=== PATIENT | male | born 1950 | race Caucasian/White ===

== ENCOUNTER 2020-11-20 11:08 | Observation (INO) | payer MEDICARE, OTHER ==
[~2020-11-20] VITALS: Ht 185.4 cm; Wt 84.2 kg
[2020-11-20] VITALS (22 sets, daily range): BP systolic 99–177; BP diastolic 50–81; PULSE 40–72; TEMP 97.4–98.3
--- NOTE | 2020-11-20 11:10 | NUR ---
Pt admitted to medical unit rm [id number] from [facility] via EMS, awake and alert, oriented x 4. Pt reports chest pain has mostly resolved, with "just a funny feeling" to mid/left chest. Heart sounds normal to auscultation with rate bradycardic. Saline lock IV's to right hand and left forearm, no s/s of complications. Provider notified of pt's arrival. Consult called to radio division captain cutter tender. No further needs reported. Call light in reach.
[2020-11-20] MEDS ORDERED: LIPITOR 40MG TA40 MG PO (12:10)
[2020-11-20] MEDS ORDERED: HYDRODIURIL50 MG PO (12:11)
[2020-11-20] MEDS ORDERED: ASPIRIN 81M81 MG/TA2 PO (12:12)
[2020-11-20] MEDS ORDERED: AZULFIDINE500 MG/TAB PO (12:12)
[2020-11-20] MEDS ORDERED: VITAMIN D 400400 IU PO (12:13)
[2020-11-20] MEDS ORDERED: MULTIPLE VITAMI1 TA5 PO (12:13)
[2020-11-20] MEDS ORDERED: VITAMIN C500 MG PO (12:14)
[2020-11-20] MEDS ORDERED: PHARMASSURE CHE30 MG PO (12:14)
[2020-11-20] MEDS ORDERED: MELATONIN1 MG PO (12:15)
[2020-11-20 12:55] LABS: MAGNESIUM 2.1 mg/dL (1.6-2.3)
[2020-11-20 13:15] LABS: TROPONIN-I 0.041 ng/mL (0.000-0.035)
[2020-11-20 13:26] LABS: TSH w REFLEX 0.964 uIU/mL (0.465-4.680)
--- NOTE | 2020-11-20 14:13 | NUR ---
Pt to cathode washer for procedure via bed.
--- NOTE | 2020-11-20 14:46 | NUR ---
SEE MERGE DOCUMENTATION FOR MEDICATION ADMINISTRATION TIMES AND INTRA/POST PROCEDURE SEDATION ASSESSMENTS. RIGHT HAND BARBEAU TEST POSITIVE.
--- NOTE | 2020-11-20 15:30 | NUR ---
Pt back to room from skill labor via bed, awake but drowsy, alert to stimuli, heart rate still leeann, other VSS. Right radial site with TR band in place, no s/s of bleeding at this time, CDI. IVF's infusing to left forearm site without s/s of complications. Pt's family at bedside. POC for bedrest x 1 hour and attempt removal of TR band in 2 hours reviewed with pt and family. No further needs reported. Call light in reach.
--- NOTE | 2020-11-20 17:50 | NUR ---
5 mls air removed from TR band to right radial site, bleeding immediately starts, air reinjected and bleeding stops. Cap refill to right hand brisk, pt denies pain or needs.
--- NOTE | 2020-11-20 18:45 | NUR ---
Attempted to remove 5 mls air from TR band to right radial site again but bleeding starts immediately and air injected back in, bleeding stops. Report to ELVER Vernon.
--- NOTE | 2020-11-20 21:37 | NUR ---
PT ALERT AND OX4. RADIAL COMPRESSION BAND ON RT WRIST. RELEASE BY 5ML. NO BLEEDING NOTED AT 2100, MONTIORING AND WILL CONTINUE TO RELEASE SAFLEY. PT DENIES PAIN, CHESTPAIN, SOA OR DIZZY. ASSESSMENT COMPLETE. NO EDEMA. DSG TO CHEST GAUZE C/D/I. VSS. LEFT FOR THE NIGHT. NEEDS MET.
--- NOTE | 2020-11-20 22:57 | NUR ---
0- TELEMETRY NOTFIED NURSE THAT PT WAS ASYSTOLE ON MONITOR. NURSE RAN TO ROOM. FOUND PT LYING ON BACK ATTEMPTING TO SET UP WAS RED IN THE FACE AGAINOALY BREATHING BLUE LIPS AND NOT ALERT. TELE INFORMED PT HAD A 30 SEC EPISODE OF ASYSTOLE. BECAME ALERT WHEN SHAKING PT LOOKED DAZED AND CONFUSED DID NOT KNOW WHAT WAS HAPPENING COLOR RETURNS TO FACE BUT WAS PALE AND DIAPHRETIC. RN CALLS FOR CHARGE NURSE HELP. VITALS OBTAINED. CALLED LISA OMER AND COMES IMMEDIATLEY TO ROOM. BP 177/81, 72,98.1,94 % OXY MASK APPLIED AT 2L. 2209- CATTLE BRANDER NOTIFED. NOTIFIED 0- AND DAUGHTER AT BEDSIDE. PT ALERT AND ORIENTATED BUT FEELS TIGHT CHEST AND LIKE HES GOING TO PASS OUT AT TIMES. LISA ON PHONE W DR NAVA, PT WILL NEED PACEMAKER. CALLING [facility] FOR TRANSFER. THEY WERE NOT ABLE TO ACCEPT. CALLING MED. FREQ VITALS BEING OBTAINED. 2312 EKG OBTAINED, NAUSEA BETTER. CHEST TIGHT ABOUT THE SAME. LISA AT BEDSIDE GIVING UPDATE ON WAITING FOR TO ACCEPT. PT IS HOOKED UP TO PACER PAD SINCE INCIDENT BEGAN. WHEN AND DAUGHTER AT BEDSIDE PT A LITTLE LESS ANIXOUS.
--- NOTE | 2020-11-20 23:29 | NUR ---
PT HAS BEEN ACCEPTED TO [facility] HOWEVER CALLING SISTER FABIEN IN [facility] CONSIDERING ITS CLOSER. UPDATED. RN REMAINS IN ROOM CLOSE MONITORING. PT FEELING A LITTLE BETTER. ALERT AND OX3, GOOD COLOR, NO NAUSEA. HEART RATE 43.
[2020-11-21] VITALS: BP 104/55; PULSE 42
--- NOTE | 2020-11-21 00:18 | NUR ---
AWAITING TRANSFER TO [facility] IN [place]. HEART RATE FROM 37-60. SETTING UP IN BED FAMILY AT BEDSIDE. DENIES NAUSEA, DIZZY OR LIGHTHEADED STATES FEELS A LITTLE BETTER. LISA OMER UPDATES FAMILY ON WAITING WAITER/WAITRESS CAPTAIN BACK FROM [facility] FOR OFFICAL ACCEPT.
--- NOTE | 2020-11-21 00:41 | NUR ---
PT HAS BEEN ACCEPTED TO [facility] OFFICALLY. AWAITING TRANSPORT PAPERWORK READY AND PT AND FAMILY CONSENTS TO TRANSFER. PT ALERT AND OX4. RESTING W EYES CLOSED PERIODICALLY.
--- NOTE | 2020-11-21 01:38 | NUR ---
REPORT CALLED TO NIGEL IN ICU AT [facility]
--- NOTE | 2020-11-21 02:37 | NUR ---
0220- EMS HERE TO TRANSPORT PT. ALL BELONGINGS TRANSFERED WITH PT. PT DID HAVE A INCIDENT PRIOR TRANSFERING TO [facility] WHERE HE FELT LIKE HE WAS GOING TO PASS OUT. WAS ALREADY TAKEN OFF THE MONITOR SO UNABLE TO SEE HEART RATE/RYTHM. IT WAS BRIEF PERIOD OF WHAT APPEARED TO BE SHAKING/RED IN FACE AND GASPING FOR AIR. TRANSPORTED AFTER INCIDENT.
== END 2020-11-21 02:20 | disposition critical access hospital (66) ==
LOC: MEDICAL 11:08
PROVIDERS: Physician Assistant; ADMIT Hospitalist
DX: I46.9 Cardiac arrest, cause unspecified (principal); R07.9 Chest pain, unspecified; R55 Syncope and collapse; R00.1 Bradycardia, unspecified; I10 Essential (primary) hypertension; I37.1 Nonrheumatic pulmonary valve insufficiency; I08.1 Rheumatic disorders of both mitral and tricuspid valves; E78.5 Hyperlipidemia, unspecified; Z20.822 Contact with and (suspected) exposure to COVID-19; K50.90 Crohn's disease, unspecified, without complications; Z79.899 Other long term (current) drug therapy; Z79.82 Long term (current) use of aspirin; Z87.891 Personal history of nicotine dependence; Z80.49 Family history of malignant neoplasm of other genital organs; Z80.3 Family history of malignant neoplasm of breast
CPT/HCPCS: C1764; G0378; J1644; J2250; J2405; J3010